=== PATIENT | male | born 1990 | race Caucasian/White ===

== ENCOUNTER 2021-07-27 20:46 | Emergency (ER) | payer OTHER, SELFPAY ==
[2021-07-27 20:50] VITALS: BP 200/117; PULSE 120; RESP 16; TEMP 36.8; O2SAT 98; BMI 37.6
--- NOTE | 2021-07-27 20:53 | DI.RAD.S_ITS ---
PROCEDURE: XR KNEE LT 3V INDICATIONS: fall onto knee TECHNIQUE: 3 views of the knee were acquired. COMPARISON: None. FINDINGS: Bones: No fractures or dislocations. No suspicious bony lesions. Soft tissues: No joint effusion. No suspicious soft tissue calcifications. IMPRESSION: 1. No fracture or dislocation. Dictated by: Donavan Begum M.D. on 07/27/2021 at 23:03 Approved by: Donavna Begum M.D. on 07/27/2021 at 23:04
--- NOTE | 2021-07-27 21:21 | ED_ITS ---
HPI - Fall General Chief Complaint: Fall Stated Complaint: FALL LEFT KNEE PAIN Time Seen by Provider: 07/27/21 20:47 Source: patient Mode of arrival: Wheelchair History of Present Illness HPI Narrative: 31-year-old male nonsmoker with noncontributory medical history presents with his brother, already wearing a hinged knee brace and a chief complaint of left knee injury at work earlier today. He states his right leg when out from under him on a slippery floor causing him to fall and twist resulting in left knee pain. He has significant pain with ambulation and with motion and improves with rest. He denies any numbness, tingling or weakness. He denies any history of the same. He denies other injury such as head, neck or back Related Data Allergies Allergy/AdvReac Type Severity Reaction Status Date / Time No Known Drug Allergies Allergy Verified 07/27/21 20:50 Review of Systems Review of Systems Narrative: GENERAL: Denies chills, fatigue, malaise, fever, sweats. HEENT: Denies sinus pain, ear pain, sore throat, difficulty swallowing, dizziness. RESPIRATORY: Denies dyspnea, cough, wheezing, hemoptysis, sputum. CARDIOVASCULAR: Denies chest pain, palpitations, orthopnea, edema, GASTROINTESTINAL: Denies nausea, vomiting, abdominal pain, diarrhea, constipation, melena. : Denies dysuria, frequency, incontinence, hematuria, urinary retention. MUSCULOSKELETAL: See HPI SKIN: Denies rash, skin lesions, or other NEUROLOGIC: Denies weakness, headache, numbness, change in speech, confusion, seizures, incoordination. PSYCHIATRIC: No concerning psychosocial issues. 12 point review of systems is negative except for those stated above Patient History Social History Smoking Status: Unknown if ever smoked Smoking Status: Unknown if ever smoked alcohol intake frequency: holidays/special occasions only Substance Use Type: does not use Exam Narrative Exam Narrative: GEN: AOx3 and in mild distress EYES: Pupils are equal, round, and reactive to light and accommodation. Extraoccular muscles are intact bilaterally. There is no subconjunctival hemorrhage or exudate. CHEST: Lungs are clear to auscultation bilaterally and free of wheezes, rales, or rhonchi. Heart rate is regular rhythm, there are no murmurs, clicks, rubs, or gallops. There is no chest wall tenderness. ABD: Abdomen is soft and nontender. There is no guarding or rebound. Bowel sounds are normal in all 4 quadrants. There is no mass or organomegaly. EXT: Full but painful range of motion of left knee without any obvious deformity such as a fusion nor redness, warmth or ligamentous instability. No joint line tenderness. SKIN: Warm, pink, and dry. No erythema or rash Initial Vital Signs Initial Vital Signs: Vital Signs Temperature 98.2 F 07/27/21 20:50 Pulse Rate 120 H 07/27/21 20:50 Respiratory Rate 16 07/27/21 20:50 Blood Pressure 200/117 H 07/27/21 20:50 Pulse Oximetry 98 07/27/21 20:50 Course Orders Ordered: ED Orders 07/27/21 20:53 XR knee LT 3V Stat Vital Signs Vital signs: Vital Signs - 8 hr 07/27/21 20:50 Temperature 98.2 F Pulse Rate 120 H Respiratory Rate 16 Blood Pressure 200/117 H Pulse Oximetry 98 MDM - Fall Imaging Data Extremity x-ray #1: Radiologist's Impression: [address] [address] XRay Report Signed Patient: Cecilio Freeman MR#: [id number] : 1990 Acct:[id number] Age/Sex: 31 / M Date of Service: 07/27/21 Loc: Accession Number: [id number] ?? Procedure: XR knee LT 3V [place] PROCEDURE:? XR KNEE LT 3V ? INDICATIONS:? fall onto knee ? TECHNIQUE:? 3 views of the knee were acquired.? ? COMPARISON:? None. ? FINDINGS:? ? Bones:? No fractures or dislocations.? No suspicious bony lesions.? ? Soft tissues:? No joint effusion.? No suspicious soft tissue calcifications.? ? ? IMPRESSION:? ? 1. No fracture or dislocation.? ? ? Dictated by: Donavan Begum M.D. on 07/27/2021 at 23:03 ? ? Approved by: Donavan Begum M.D. on 07/27/2021 at 23:04 ? Discharge Plan Departure Patient Disposition: Home Clinical Impression: Left knee injury Instructions: How to Prevent Falls Activity Restrictions/Additional Instructions: *You have been diagnosed with [ left knee injury. Xray is reassuring and there is no evidence of fracture or dislocation.] *What to do: *Please continue to take your regular medications as directed. [ ] New medication prescriptions sent to your pharmacy: [ ] [ ] New medication written as a paper prescription [x ] No new medications given *Please follow up with your primary care provider in 2-3 days, call for an appointment. Let them know you were seen in the Emergency Department and that we ask that you be seen in follow up. We will electronically transmit a record of today's note if your PCP is in our system *If you do not have a primary care provider please contact the [facility] Resource line at [phone]. They will ask some questions about your medical history and help get you set up with a doctor in the community. *Return to Emergency Department if you should have any new, worsening or concerning symptoms, such as [fever greater than 101 F, shaking chills, worsening pain, persistent vomiting or other bothersome symptoms]
== END 2021-07-27 22:00 | disposition home or self-care (01) ==
PROVIDERS: Emergency Provider Emergency Medicine
DX: S89.92XA Unspecified injury of left lower leg, initial encounter (principal); W01.0XXA Fall on same level from slipping, tripping and stumbling without subsequent striking against object, initial encounter; Y99.0 Civilian activity done for income or pay
CPT/HCPCS: 73562; 99281; 99283